=== PATIENT | male | born 1975 | race African-American/Black ===

== ENCOUNTER 2022-05-25 08:21 | Emergency (ER) | payer MEDICAID ==
[~2022-05-25] VITALS: Ht 162.6 cm; Wt 91.0 kg
[2022-05-25 08:36] VITALS: BP 169/99
[2022-05-25] MEDS ORDERED: TOPUD PO ×2 (08:39→09:45)
[2022-05-25] MEDS ORDERED: ACETAMINOPHEN 325MG TABLET PO ONE (09:15)
== END 2022-05-25 09:52 | disposition home or self-care (01) ==
LOC: ER 08:35
DX: M25.562 Pain in left knee (principal)
CPT/HCPCS: 73560; 99283

== ENCOUNTER 2025-06-08 11:51 | Emergency (ER) | payer SELFPAY ==
[~2025-06-08] VITALS: Ht 167.6 cm; Wt 80.0 kg
[~2025-06-08 11:51] MED LIST: TOPUD PO
[2025-06-08 11:58] VITALS: O2SAT 100
[2025-06-08] MEDS ORDERED: IBUP-1455 MT (12:25)
[2025-06-08] MEDS ORDERED: LIDO700A30 TP (12:25)
[2025-06-08] MEDS ORDERED: CYCL10TA21 MT (12:25)
[2025-06-08] MEDS: IBUPROFEN 600MG TABLET PO ONE (12:36)
[2025-06-08 12:37] VITALS: BP 144/87; PULSE 88; RESP 18; TEMP 36.9; O2SAT 100
[2025-06-08] MEDS: LIDOCAINE 5% PATCH TOP STA (12:37)
== END 2025-06-08 12:41 | disposition home or self-care (01) ==
LOC: ER 11:51
DX: M54.50 Low back pain, unspecified (principal)
CPT/HCPCS: 99283